=== PATIENT | male | born 1985 | race Caucasian/White ===

== ENCOUNTER 2016-05-10 08:38 | Emergency (ER) | payer BC ==
[~2016-05-10 08:38] MED LIST: CARAFATE1 G1 PO; CIPRO500 MG PO; OMEPRAZOLE20 M1 PO; PRILOSEC20 M1 PO; ZANTAC150 MG PO; ZOFRAN ODT8 MG PO; Zofran4 MG PO
[2016-05-10] MEDS ORDERED: PERCOCET 325 MG1 TA2 PO (12:52)
[2016-05-10] MEDS ORDERED: PREDNISONE50 MG PO (12:52)
[2016-05-10] MEDS ORDERED: NAPROSYN500 MG PO (12:52)
[2016-05-10] MEDS ORDERED: VALIUM10 MG PO (12:52)
== END 2016-05-10 13:12 | disposition home or self-care (01) ==
LOC: ED 08:38
DX: M54.9 Dorsalgia, unspecified (principal); R20.0 Anesthesia of skin; R20.2 Paresthesia of skin; Z88.0 Allergy status to penicillin

== ENCOUNTER 2018-10-19 19:07 | Emergency (ER) | payer OTHER ==
[~2018-10-19] VITALS: Ht 182.8 cm; Wt 113.9 kg
--- NOTE | ~2018-10-19 | EKG ---
[place], [place] ELECTROCARDIOGRAM REPORT NAME: IRWIN YEUNG UNIT #: [id number] ROOM: DOCTOR: EPIPHANY DRAFT REPORT BIRTHDATE: [birth year] [facility] Test Date: 2018-10-19 Test Time: 20:12:42 Pat Name: IRWIN YEUNG Department: Room: Gender: Inhalation Therapy Aide: : 1985 Requested By: ARIA DOBBINS DNP Order Number: [id number] Reading MD: Robyn Snow MD Measurements Intervals [place] Rate: 45 P: 18 DC: 176 QRS: -4 QRSD: 97 T: 8 QT: 409 QTc: 354 Interpretive Statements Sinus bradycardia Electronically Signed On 10-20-2018 12:30:08 PDT by Robyn Snow MD CM:EKGRPT:ELECTROCARDIOGRAM REPORT 11 1230 ARIA DOBBINS DNP [facility] DRAFT REPORT ARIA DOBBINS DNP
[~2018-10-19 19:07] MED LIST changes: +AVPAK AZITHROM250 M1 PO; +CLARITIN10 MG PO; +FLONASE ALLERG9.9 ML NAS; +NAPROSYN500 MG PO; +PERCOCET 325 MG1 TA2 PO; +PREDNISONE10 MG PO; +PREDNISONE50 MG PO; +VALIUM10 MG PO
[2018-10-19 20:31] LABS: BASO % 0.6 % (0.0-1.0); EOS # 0.1 10*3/uL (0.0-0.4); EOS % 1.8 % (1.0-4.0); HEMATOCRIT 45.6 % (42.0-52.0); HEMOGLOBIN 14.9 g/dl (14.0-18.0); LYMPH # 2.3 10*3/uL (1.3-4.4); LYMPH % 32.2 % (27.0-41.0); MEAN CELL VOLUME 92.9 fl (80.0-94.0); MEAN CORPUSCULAR HGB 30.3 pg (27.0-31.0); MEAN CORPUSCULAR HGB CONC 32.7 g/dl (33.0-37.0); MEAN PLATELET VOLUME 11.5 fl (9.6-12.3); MONO # 0.6 10*3/uL (0.1-1.0); MONO % 7.9 % (3.0-9.0); NEUT # 4.1 10*3/uL (2.3-7.9); NEUT % 57.2 % (47.0-73.0); PLATELET COUNT AUTOMATED 207 10*3/uL (130-400); RED BLOOD COUNT 4.91 10*6/uL (4.50-5.90); RED CELL DISTRI WIDTH 12.1 % (0-14.5); WHITE BLOOD COUNT 7.2 10*3/uL (4.8-10.8)
[2018-10-19 20:52] LABS: ALBUMIN 4.5 gm/dl (3.1-4.5); ALKALINE PHOSPHATASE 45 U/L (45-117); BUN 18 mg/dl (7-24); CHLORIDE 106 mmol/L (98-107); CREATININE 1.32 mg/dL (0.70-1.30); LIPASE 130 U/L (73-393); POTASSIUM 4.2 mmol/L (3.5-5.1); SGOT/AST 21 IU/L (3-35); SGPT/ALT 37 U/L (12-78); SODIUM 141 mmol/L (136-145); TOTAL PROTEIN 8.2 gm/dL (6.4-8.2)
[2018-10-19 21:12] LABS: TROPONIN I < 0.015 ng/ml (<0.045)
[2018-10-19] MEDS ORDERED: PROTONIX40 MG PO (21:55)
[2018-10-19] MEDS ORDERED: ZANTAC 150150 MG PO (21:55)
== END 2018-10-19 22:03 | disposition home or self-care (01) ==
LOC: ED 19:07
PROVIDERS: Nurse Practitioner Family
DX: R07.89 Other chest pain (principal); K21.9 Gastro-esophageal reflux disease without esophagitis; F17.200 Nicotine dependence, unspecified, uncomplicated; Z79.899 Other long term (current) drug therapy; Z88.0 Allergy status to penicillin

== ENCOUNTER 2019-10-15 10:42 | Emergency (ER) | payer SELFPAY ==
[~2019-10-15] VITALS: Ht 182.8 cm; Wt 117.0 kg
[~2019-10-15 10:42] MED LIST changes: +PROTONIX40 MG PO; +ZANTAC 150150 MG PO
== END 2019-10-15 11:00 | disposition left against medical advice (07) ==
LOC: ED 10:42
DX: F41.9 Anxiety disorder, unspecified (principal); Z88.0 Allergy status to penicillin; Z79.899 Other long term (current) drug therapy

== ENCOUNTER → 2021-05-20 | Outpatient (CLI) | payer BC | LOC: COVID19 15:22 | PROVIDERS: ATTEND Internal Medicine | DX: U07.1 COVID-19 (principal) ==